=== PATIENT | female | born 1985 | race American Indian/Alaskan Native ===

== ENCOUNTER 2025-08-17 16:14 | Outpatient (AMB) | payer OTHER, SELFPAY ==
--- NOTE | 2025-08-17 16:31 | MHC.PC.OV ---
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, lump under left palm Dough Catcher Required: No Accompanied by: Self / Same As Patient Allergies No Known Allergies Allergy (Unknown, Unverified 08/17/25 16:31) Medication List - Last Reconciled 08/17/25 by SEAMUS Zaragoza epinephrine (EpiPen 2-Ronnie) 0.3 mg (0.3 mL) IM Q10M PRN Tobacco use date assessed: 08/17/25 Dental Screening Dental Screen Date: 08/17/25 Did you have a dental visit in the last 12 months?: Yes Did you have a dental problem in the last 6 months where you did not have access to dental care?: No Was dental information given to patient?: Patient has dentist HPI HPI Comments History of Present Illness Details 40-year-old female with history of migraines, endometriosis, obesity presenting to the office today to establish care and for annual physical exam. Living her boyriend, son. and daughter. 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 No alcohol use. History of cigarette smoking, quit 4 years, smoked for 15 years, 0.5ppd. No illicit drug use or marijuana use. Not following a healthy diet, had a period of depression following the of her son. Having difficulty improving her diet. Not exercising much. Seen by PCP at [facility] about 60 years ago Migraines-longstanding since she was in her 20s. Reports she gets 1-2 headaches weekly but is increasing in frequency. She does endorse aura. There is also phonophobia and photophobia. No nausea or vomiting. Does endorse some lightheadedness however. She is uncertain of any triggers. Describes a pounding/pulsing sensation in the frontal or occasionally occipital areas. She states when the headaches occur during the day, she is able to take Advil with good improvement in her symptoms lasting about 1-2 hours. However, she does occasionally wake up with migraine headaches that are more severe and unresponsive to NSAIDs. She states these will typically last for about a day and are quite debilitating. Endometriosis-s/p exploratory laparotomy. Diagnosed in her teenage years. She does continue to experience longer. The significant cramping, dyspareunia, menorrhagia. She does not currently have coordinator mining products and she is not on any OCPs Concerns: Migraines as above Cystic mass on palmar aspect of the left hand Food sensitivities-when eating most fruits, experiences pain and swelling of her taste buds. She does state that recently, she tried to eat strawberries and felt as if for throat was closing with difficulty breathing. She does experience environmental allergies Obesity- 34.0 Health Maintenance: Due for PENSION AGENT Due for mammo Due for eye exam Dental exams twice yearly ROS: General: No fevers, malaise, unintentional weight loss HEENT: No blurred vision, diplopia. No sore throat, nasal congestion, rhinorrhea, sinus pain, ear pain. No hearing loss Neck - no adenopathy Cardiovascular: No chest pain, palpitations, or leg edema Respiratory: No shortness of breath, wheezing, cough Breast: No pain, palpable lumps, nipple inversion GI: No dysphagia, odynophagia, globus sensation. No abdominal pain, nausea, vomiting, diarrhea, constipation, melena, hematochezia : No dysuria, hematuria, increased urinary frequency, decreased urinary output. PENSION AGENT: No abn vaginal bleeding or discharge MSK: No myalgia, back pain, arthralgias. see hpi Neuro: No headaches, weakness, paresthesias Psych: no depression/anxiery. No AH/VH. No SI/HI Skin: No rashes or lesions EXAM: Constitutional - Awake and Alert, No apparent distress Eyes - PERRLA, EOMI. Anicteric Ears - external ears normal, canals clear, TMs intact and pearly caceres with good cone of light Nose- septum midline, nares clear, no sinus tenderness Mouth/throat- mucosa moist, tongue and uvula midline, no erythema/edema or tonsillar adenopathy. Neck-trachea midline, thyroid symmetric without palpable nodules, no adenopathy Cardiovascular - S1S2, RRR, No edema Respiratory - Normal lung expansion, Normal respiratory effort, No respiratory distress, CTA bilaterally Gastrointestinal - NT / ND; +BS; No rebound or guarding - No CVA tenderness Extremities - no calf tenderness bilaterally, no swelling Musculoskeletal - Normal inspection, normal ROM. Firm mobile ball about 3mm between the palmar aspect of 3rd-4th MCP Skin - Warm/Dry, no concerning lesions Neurological - Alert & oriented x3, CN II-XII in tact, 5/5 strength BUE and BLE, 2+ patellar reflexes, sensation intact Psychological - Appropriate affect [facility] Medical History Endometriosis Migraines Surgical History H/O exploratory laparotomy Family History Paternal Grandmother Diabetes Father Diabetes Maternal Aunt Ovarian cancer, Onset Age: 40 Social History Housing: Apartment Patient Tobacco Use Status: Former Tobacco user e-Cigarette/Vaping Use: Never Used service: No Current occupational status: employed Current occupation: [employer] Cognitive needs: No Hearing needs: No Vision needs: No Questionnaire PHQ-9 Over the last 2 weeks, how often have you been bothered by any of the following problems? 1. Little interest or pleasure in doing things: not at all 2. Feeling down, depressed, or hopeless: not at all 3. Trouble falling or staying asleep, or sleeping too much: not at all 4. Feeling tired or having little energy: not at all 5. Poor appetite or overeating: not at all 6. Feeling bad about yourself - or that you are a failure or have let yourself or your family down: not at all 7. Trouble concentrating on things, such as reading the newspaper or watching television: not at all 8. Moving or speaking so slowly that other people could have noticed. Or the opposite - being so fidgety or restless that you have been moving around a lot more than usual: not at all 9. Thoughts that you would be better off or of hurting yourself in some way: not at all Total score: 0 Depression Screening Interpretation: Negative Depression Screening Done: Yes 55308 - PHQ-9 Billing: Yes Source: Developed by Drs. Primitivo Page, Mansi Abebe, Macario Harris and colleagues, with an educational shelton from [employer] Thrive Questionnaire I am a: Patient What is your living situation today?: I have a steady place to live Within the past 12 months, did the food you bought not last and you didn't have the money to get more?: Never true Within the past 12 months, did you worry whether your food would run out before you got money to buy more?: Never true Do you have trouble paying for medicines?: No Do you have trouble getting transportation to medical appointments?: No Do you have trouble paying your heating and electricity bill?: No Do you have trouble taking care of your child, family member or friend?: No Do you have trouble with day-to-day activities such as bathing, preparing meals, shopping, managing finances, etc.?: No Are you currently unemployed and looking for a job?: No Are you interested in more education?: No Please select the resources that you would like help with: None Currently or been in a relationship where the following occur: No concerns reported THRIVE Score: 0 ANNIKA-7 AMB Questionnaire ANNIKA-7 Feeling nervous, anxious, or on edge: 0 = Not at all Not being able to stop or control worryin = Not at all Worrying too much about different things: 0 = Not at all Trouble relaxin = Not at all Being so restless that it is hard to sit still: 0 = Not at all Becoming easily annoyed or irritable: 0 = Not at all Feeling afraid as if something awful might happen: 0 = Not at all Total ANNIKA-7 score (0-4 normal; 5-9 mild; 10-14 moderate; 15-21 severe): 0 Source: Developed by Drs. Primitivo Page, Mansi Abebe, Macario Harris and colleagues, with an educational shelton from [employer] ANNIKA-7 Assessment Billing ANNIKA-7 Assessment Tool: ANNIKA-7 Assessment 80591 Physical exam (Primary Care) Vital Signs: Last Vital Signs Temp 97.4 F 08/17/25 16:37 Pulse 69 08/17/25 16:37 Resp 14 08/17/25 16:37 BP 130/78 08/17/25 16:37 Pulse Ox 99 08/17/25 16:37 Oxygen Delivery Method Room Air 08/17/25 16:37 BMI result Body Mass Index 34.0 Tobacco/Smoking Status: Tobacco use Status Tobacco use date assessed 08/17/25 08/17/25 16:38 Patient Tobacco Use Status Former Tobacco user 08/17/25 16:38 e-Cigarette/Vaping Use Never Used 08/17/25 16:38 Depression Screening Interpretation: Negative Currently or been in a relationship where the following occur: No concerns reported Coding Level of Care Code Est Pt Level 4 (63332) New Pt Prev Care 40-64y(26469) Diagnoses Routine medical exam Z00.00 Chronic migraine with aura G43.E09 Oral allergy syndrome T78.19XA Additional Codes PHQ-9 - 52665 - PHQ-9 Billing: Yes ([id number]) ANNIKA-7 Assessment Billing - ANNIKA-7 Assessment Tool: ANNIKA-7 Assessment 87556 ([id number]) Assessment & Plan Assessment & Plan (1) Routine medical exam: Code(s): Z00.00 - Encounter for general adult medical examination without abnormal findings Category: Medical Plan: 40-year-old female presenting for annual physical exam and to establish care. Plan as below (2) Chronic migraine with aura: Code(s): G43.E09 - Chronic migraine with aura, not intractable, without status migrainosus Category: Medical Plan: MRI of the brain ordered. She is referred to Neurology for further evaluation and management. Recommend Excedrin for less severe headaches and is also given prescription for sumatriptan to use if needed. Counseled on dosing. (3) Oral allergy syndrome: Code(s): T78.19XA - Other adverse food reactions, not elsewhere classified, initial encounter Category: Medical Plan: Discuss knee sensitivity to fruits and a tongue is less likely food allergy but more likely an environmental allergy. We will refer to Allergy for further evaluation as well as evaluation of the more serious reaction she experience to strawberries. She is given prescription EpiPen in his counseled on use. Advised to present to the ED if EpiPen as needed. Plan Routine screening labs as ordered below Refer to coordinator mining products as well as for annual mammogram Continue following for annual skin exams and use sun protection Annual eye exams Dental exams twice yearly Wear seat belt in car Recommend regular exercise and healthy diet. She is referred to dietitian Follow up 1 year for annual exam, sooner if needed Orders: Orders Basic Metabolic Panel Today N92.0 - Excessive and frequent menstruation with regular cycle, Z00.00 - Encounter for general adult medical examination without abnormal findings Hemoglobin A1c Today N92.0 - Excessive and frequent menstruation with regular cycle, Z00.00 - Encounter for general adult medical examination without abnormal findings IRON PROFILE Today N92.0 - Excessive and frequent menstruation with regular cycle, Z00.00 - Encounter for general adult medical examination without abnormal findings Lipid Panel Today N92.0 - Excessive and frequent menstruation with regular cycle, Z00.00 - Encounter for general adult medical examination without abnormal findings Liver Panel Today N92.0 - Excessive and frequent menstruation with regular cycle, Z00.00 - Encounter for general adult medical examination without abnormal findings Vitamin D 25-OH Total Today N92.0 - Excessive and frequent menstruation with regular cycle, Z00.00 - Encounter for general adult medical examination without abnormal findings MR head/brain wo con Today G43.E09 - Chronic migraine with aura, not intractable, without status migrainosus Complete Blood Count Auto Diff Today N92.0 - Excessive and frequent menstruation with regular cycle, Z00.00 - Encounter for general adult medical examination without abnormal findings TSH reflex Free T4 Today N92.0 - Excessive and frequent menstruation with regular cycle, Z00.00 - Encounter for general adult medical examination without abnormal findings MM tomosynthesis screening BI Today Z12.31 - Encounter for screening mammogram for malignant neoplasm of breast Referrals Allergy & Immunology Referral T78.19XA - Other adverse food reactions, not elsewhere classified, initial encounter, Z91.018 - Allergy to other foods Rn Surgery Nutrition Referral E66.9 - Obesity, unspecified Neurology Referral G43.909 - Migraine, unspecified, not intractable, without status migrainosus, G43.E09 - Chronic migraine with aura, not intractable, without status migrainosus ARCHITECTURE TECHNICIAN Referral N80.9 - Endometriosis, unspecified, Z12.4 - Encounter for screening for malignant neoplasm of cervix Medications: New epinephrine (EpiPen 2-Ronnie) for 2 doses 0.3 mg (0.3 mL) IM Q10M PRN 2 ea 0RF anaphylaxis sumatriptan succinate take 1 tab at onset of headache; if no relief may repeat 1 tab after at least 2 hrs; max = 4 tabs/24 hr PO 20 tabs 0RF
[2025-08-17 16:37] VITALS: BP 130/78; PULSE 69; RESP 14; TEMP 36.3; O2SAT 99; BMI 34.0
== END 2025-08-17 17:15 | disposition home or self-care (01) ==
LOC: HO.HMCHD 16:15
PROVIDERS: Visit Provider Physician Assistant
DX: Z00.00 Encounter for general adult medical examination without abnormal findings (principal); G43.E09 Chronic migraine with aura, not intractable, without status migrainosus; T78.19XA Other adverse food reactions, not elsewhere classified, initial encounter

== ENCOUNTER → 2025-08-17 16:14 | Outpatient (BNVA) | payer OTHER, SELFPAY | PROVIDERS: Visit Provider Physician Assistant | DX: Z00.00 Encounter for general adult medical examination without abnormal findings (principal); Z13.31 Encounter for screening for depression; Z13.39 Encounter for screening examination for other mental health and behavioral disorders; G43.E09 Chronic migraine with aura, not intractable, without status migrainosus; T78.19XA Other adverse food reactions, not elsewhere classified, initial encounter; N92.0 Excessive and frequent menstruation with regular cycle; Z91.018 Allergy to other foods | CPT/HCPCS: 96127; 99212; 99386 ==